=== PATIENT | female | born 1970 ===

== ENCOUNTER 2022-12-08 11:41 | Emergency (ER) | payer OTHER, SELFPAY ==
[2022-12-08 11:50] VITALS: BP 150/91; PULSE 70; RESP 20; TEMP 37; O2SAT 97; BMI 30.2
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
== END 2022-12-08 12:15 | disposition home or self-care (01) ==
PROVIDERS: Emergency Provider Emergency Medicine
DX: L03.116 Cellulitis of left lower limb (principal); M79.672 Pain in left foot
CPT/HCPCS: 99282; 99283

== ENCOUNTER 2022-12-13 12:18 | Emergency (ER) | payer OTHER, SELFPAY ==
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
[2022-12-13 12:25] VITALS: BP 164/92; PULSE 93; RESP 20; TEMP 36.6; O2SAT 98; BMI 33.0
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
--- NOTE | 2022-12-13 12:40 | PC.NURSE ---
report given to Francisco, commercial lines account assistantcolor television console monitor applied, pulse ox in place, SR on monitor
--- NOTE | 2022-12-13 12:52 | MHC.EDTECH ---
@[phone] called [facility] at the request of Dr. Reed. Gave patient demographics. The individual on the phone asked to speak with Dr. Reed regarding the diagnosis of the patient. Dr. Reed took the call right away.
[2022-12-13] MEDS: Albuterol Sulfate (0.083%) 2.5 MG/3 ML VIAL.NEB 5 MG INHALE (12:56)
[2022-12-13 12:57] VITALS: PULSE 87; RESP 14; O2SAT 97
[2022-12-13 12:58] LABS: MANUAL DIFF FLAG NO
[2022-12-13] MEDS: 0.9 % Sodium Chloride 1,000 ML 999 ML IV (13:01)
[2022-12-13 13:09] LABS: Basophils Absolute Auto 0.1 X10*3/uL (0.0-0.2); Basophils Percent Auto 0.7 % (0-2); Eosinophils Absolute Auto 0.4 X10*3/uL (0.0-0.4); Eosinophils Percent Auto 5.2 % (0-4); Hematocrit 40.1 % (37.0-47.0); Hemoglobin 13.4 g/dl (12.0-16.0); Imm Gran Abs Auto 0.03 X10*3/uL (0.00-0.03); Imm Gran Pct Auto 0.4 % (0.0-0.4); Lymphocytes Absolute Auto 1.7 X10*3/uL (1.2-4.9); Lymphocytes Percent Auto 25.1 % (20-40); Mean Corpuscular HGB Conc 33.4 g/dl (31.0-35.0); Mean Corpuscular Hemoglobin 28.9 pg (27.0-33.0); Mean Corpuscular Volume 86.4 fL (80.0-98.0); Mean Platelet Volume 10.4 fL (9.4-12.3); Monocytes Absolute Auto 0.5 X10*3/uL (0.1-1.2); Monocytes Percent Auto 7.8 % (2-11); Neutrophils Absolute Auto 4.1 x10*3/uL (2.0-8.3); Neutrophils Percent Auto 60.8 % (45-73); Platelet Count 277 X10*3/uL (160-400); Red Blood Count 4.64 X10*6/uL (4.20-5.50); Red Cell Distribution Width 13.1 % (11.0-16.0); White Blood Count 6.8 X10*3/uL (4.8-10.8)
--- NOTE | 2022-12-13 13:18 | PC.NURSE ---
aox4. MAGANA equally. reports facial/left foot pain. abrasion. denies numbness/tingling to areas. piv placed. xray being ordered- md osborn notified pt reports hurt left foot previously. vss pre pt. formwork carpenter came to bedside.
[2022-12-13 13:46] LABS: Anion Gap 14 (12-20); Blood Urea Nitrogen 22 mg/dL (9-16); Calcium 9.2 mg/dL (8.4-10.2); Carbon Dioxide 20 mmol/L (22-29); Chloride 112 mmol/L (96-108); Creatinine Clr Calc Pharmacy 102.3; Estimated Glomerular Filt Rate > 60; Glucose Random 109 mg/dL (60-115); Potassium 4.3 mmol/L (3.3-5.1); Sodium 142 mmol/L (135-145)
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
[2022-12-13 14:19] VITALS: BP 115/79; PULSE 84; RESP 12; TEMP 36.6; O2SAT 98
[2022-12-13 14:57] LABS: Appearance Urine Clear; Color Urine Yellow; Glucose Urine UA Negative (Negative); Leukocyte Esterase Urine Moderate (2+) (Negative); Nitrite Urine Negative (Negative); PH 5.5 (5.0-9.0); Specific Gravity - Urine 1.025 (1.005-1.025); UMIC TRIGGER UACC YES; Urine Blood Negative (Negative); Urine Ketones Negative (Negative); Urine Protein Negative (Neg-Trace)
[2022-12-13 14:58] LABS: UPreg QC Valid YES; Urine Pregnancy NEGATIVE (NEGATIVE)
[2022-12-13] MEDS: oxyCODONE HCl Immed Release 5 MG TABLET PO (15:01)
[2022-12-13 15:03] VITALS: BP 117/79; PULSE 86; RESP 16; TEMP 36.6; O2SAT 98
[2022-12-13 15:11] LABS: Bacteria Urine None Seen (None Seen); Hyaline Casts Urine 0-2 /LPF (0-2); RBC Urine 0-2 /HPF (0-2); UACC Culture Trigger YES
[2022-12-13] MEDS: Silver Sulfadiazine 1 % Cream 20 GM TUBE 1 APPL TOPICAL (16:22)
[2022-12-13] MEDS: Bacitracin Oint 0.9 GM PACKET 1 APPL TOPICAL (16:23)
[2022-12-13 16:32] VITALS: BP 131/69; PULSE 81; RESP 17; TEMP 36.3; O2SAT 98
[2022-12-13 16:34] VITALS: BP 131/69; PULSE 81; RESP 17; TEMP 36.3; O2SAT 98
--- NOTE | 2022-12-13 17:01 | PC.NURSE ---
aox4. latosha, client liaison, utilized. piv out. foot dressed. bacitrain to face applied. cleansed face/foot per md osborn. wheelchair to lobby. CSM remains intact throughout. understands instructions- verbalized/demonstrated. vss per pt baseline at this time.
== END 2022-12-13 17:00 | disposition home or self-care (01) ==
PROVIDERS: Emergency Provider Emergency Medicine; PCP Internal Medicine
DX: T25.322A Burn of third degree of left foot, initial encounter (principal); T20.29XA Burn of second degree of multiple sites of head, face, and neck, initial encounter; T31.0 Burns involving less than 10% of body surface; X12.XXXA Contact with other hot fluids, initial encounter; Y93.89 Activity, other specified; Y92.010 Kitchen of single-family (private) house as the place of occurrence of the external cause; Y99.9 Unspecified external cause status
CPT/HCPCS: 16025; 36415; 73600; 73630; 80048; 81001; 81003; 81025; 85025; 87086; 93005; 94640; 96360; 96361; 99284; 99285

== ENCOUNTER 2023-03-13 11:43 | Outpatient (REF) | payer OTHER, SELFPAY ==
[2023-03-13 15:59] LABS: Alanine Aminotransferase 26 U/L (0-31); Albumin Level 4.4 g/dL (3.5-5.0); Alkaline Phosphatase 157 U/L (39-117); Aspartate Amino Transferase 19 U/L (5-31); Bilirubin Direct 0.3 mg/dL (0.0-0.5); Bilirubin Total 0.8 mg/dL (0.0-1.0); Total Protein 6.9 g/dL (6.5-8.0)
[2023-03-13 16:32] LABS: Folate 9.8 ng/mL (> or = 4.0); Vitamin B12 816 pg/mL (200-900)
[2023-03-19 15:28] LABS: Vitamin D 25-OH, D2 <4 ng/mL; Vitamin D 25-OH, D3 9 ng/mL; Vitamin D 25-OH, Total 9 ng/mL (30-100)
== END 2023-03-13 11:44 | disposition home or self-care (01) ==
LOC: HO.LAB 11:43
PROVIDERS: PCP Internal Medicine; Visit Provider Nurse Practitioner Family
DX: Z01.818 Encounter for other preprocedural examination (principal); E78.00 Pure hypercholesterolemia, unspecified; R10.11 Right upper quadrant pain; R19.7 Diarrhea, unspecified; E55.9 Vitamin D deficiency, unspecified; K59.00 Constipation, unspecified; Z79.899 Other long term (current) drug therapy
CPT/HCPCS: 36415; 80076; 82306; 82607; 82746

== ENCOUNTER 2023-03-13 11:43 | Outpatient (AMB) | payer OTHER, SELFPAY ==
--- NOTE | 2023-03-13 11:53 | A.OFFVIS_ITS ---
Intake Vital Signs 03/13/23 11:55 Height 5 ft 4 in Weight 182 lb 15.739 oz BMI 31.4 Blood Pressure Location Lt brachial Position Sitting Intake Visit Reasons: Colonoscopy Screening Intake Note: Julia presents in the office as a colonoscopy screening. CC: She states that she is not having any concerns today. She is just due for a colonoscopy. [employer] Required: Yes Allergies No Known Allergies Allergy (Verified 03/13/23 11:55) Medication List - Last Reconciled 03/13/23 by TOMASA Mays-CALEB atorvastatin 10 mg PO BEDTIME bacitracin zinc 1 appl topical TID cephalexin 500 mg PO TID cetirizine (All Day Allergy (cetirizine)) 10 mg PO DAILY PRN ibuprofen 600 mg PO TID PRN mupirocin 2% 1 appl topical TID HPI Colonoscopy Screening HPI Details 52 year old? female with past medical hi story of hypercholesteremia is here today for pre colonoscopy screening.? Patient was sent to us by her PCP.? This is her first colonoscopy screening.? Patient denies any gastrointestinal symptoms in the past or at present.? Denies any personal or family history of gastrointestinal disease, colon polyps, or cancer.? Patient has a history of cholecystectomy. Reports that she has occasional right upper quadrant discomfort after eating fried or greasy food. Patient reports occasional constipation. Denies history of difficulty with sedation or anesthesia in the past, however patient had upper endoscopy about 6 years ago and had trouble waking up after. Unsure what type of anesthetic was used.? Negative for history of sleep apnea.? Denies any history of cardiac, renal, pulmonary, or hepatic disease.??Patient had cholecystectomy about 10 years ago. No history of infectious? diseases like hepatitis A, B, C, HIV or tuberculosis.? Patient is not on any anticoagulation therapy. [facility] Medical History No pertinent past medical history Surgical History (Updated 03/13/23 @ 11:55 by ABBIE Gallo) History of esophagogastroduodenoscopy (EGD) Social History Alcohol intake: never Review of Systems Const Denies weight gain and Denies weight loss ENT Reports no additional complaints, Denies dysphagia and Denies odynophagia Card Reports no additional complaints Resp Reports no additional complaints GI Reports abdominal pain (RUQ), Denies belching, Denies melena, Denies bloating, Denies change in bowel habits, Denies dysphagia, Denies excessive flatus, Denies dyspepsia, Denies heartburn, Denies diarrhea, Denies loose stools, Denies nausea, Denies odynophagia and Denies vomiting Reports no additional complaints Musc Reports no additional complaints Neuro Reports no additional complaints Psych Reports no additional complaints Endo Reports no additional complaints Physical Exam Vital Signs: BMI result Body Mass Index 31.4 Const General: healthy appearing, no acute distress and well developed Nutritional Appearance: obese Orientation/consciousness: patient oriented x3 HEENT Head: Yes normal to inspection, Yes normocephalic and Yes atraumatic Face and sinus: Yes normal facial exam Mouth: Normal oral and palatal mucosa present Throat: Yes posterior oropharynx normal, Yes tonsils normal and Yes uvula midline Eyes General: appearance normal, both eyes and all related structures Neck Neck: Yes normal visual inspection, Yes full ROM and Yes trachea midline Thyroid: Thyroid normal Resp Effort & Inspection: normal respiratory effort, able to speak in complete sentences, no tracheal deviation and symmetric chest movement Auscultation: clear to auscultation bilaterally Cardio Rate: regular rate Heart sounds: S1 normal heart sound present and S2 normal heart sound present GI Inspection: Yes normal to inspection, No distended and Yes obesity Palpation (GI): Soft to palpation, not firm, nontender and No hepatosplenomegaly present Auscultation: normal bowel sounds General: Yes no CVA tenderness Back/Spine/Pelvis Back: no CVA tenderness Skin General skin exam: elasticity normal, turgor normal and dry skin Neuro General: patient oriented x3 Psych Appearance: grossly normal Mental Status: mental status grossly normal Speech and movement: Normal speech and movement present Assessment & Plan Assessment & Plan (1) Postprandial abdominal pain in right upper quadrant: Code(s): R10.11 - Right upper quadrant pain Plan: Occasional postprandial right upper quadrant discomfort. Patient has history of cholecystectomy. Will have patient move her bowels better. Patient will try to take 2 senna every evening. She was encouraged to increase fluid intake and activities to promote better bowel motility. (2) Screen for colon cancer: Code(s): Z12.11 - Encounter for screening for malignant neoplasm of colon Plan: Patient denies any cardiac or respiratory symptoms.? RUQ pain postprandially. Denies any issues with anesthesia in the past except for 1 time after upper endoscopy patient had trouble waking up. Denies any history of sleep apnea.? No history infectious diseases in the past or present.? Not on any anticoagulation therapy.? No family or personal history of colon cancer or polyps.? Patient denies melena, hematochezia, unintentional weight loss or ribbon like stools.? Discussed at length the pre-procedure,? prep, diet & medications as well as what to expect prior, during and after the procedure.?? Stressed the importance of good bowel prep. ?Recommended the use of Vaseline or Calmoseptine OTC & baby wipes with bowel movements to promote comfort.? ?? I will see her in 6 weeks, sooner as needed basis. Patient is agreeable to this plan and verbalizes understanding of instructions. She was given the opportunity to ask questions and all questions answered. Thank you for allowing me to participate in her care Orders: Orders Liver Panel Today R10.9 - Unspecified abdominal pain Vitamin B12 and Folate Today R19.7 - Diarrhea, unspecified Vitamin D 25-OH (D2 and D3) Today E55.9 - Vitamin D deficiency, unspecified Medications: New bisacodyl (Dulcolax (bisacodyl)) take 2 tabs at noon the day before your colonoscopy 10 mg (2 x 5 mg) PO ONCE 1 day 2 tabs 0RF Z12.11 - Encounter for screening for malignant neoplasm of colon sennosides (Natural Senna Laxative) 17.2 mg (2 x 8.6 mg) PO BEDTIME 60 tabs 3RF constipation K59.00 - Constipation, unspecified polyethylene glycol 3350 (Miralax) As directed by gastroenterology department at [facility] 238 grams PO ONCE 238 grams 0RF Z12.11 - Encounter for screening for malignant neoplasm of colon Coding Level of Care Code New Pt Level 3 (52484) Diagnoses Postprandial abdominal pain in right upper quadrant R10.11 Screen for colon cancer Z12.11 Time Spent (min) 40 Comment 30 minutes spent with patient and additional 10 minutes spent reviewing her records
[2023-03-13 11:55] VITALS: BMI 31.4
== END 2023-03-13 12:33 | disposition home or self-care (01) ==
PROVIDERS: PCP Internal Medicine; Visit Provider Nurse Practitioner Family
DX: R10.11 Right upper quadrant pain (principal); Z12.11 Encounter for screening for malignant neoplasm of colon
CPT/HCPCS: 99203

== ENCOUNTER 2023-04-24 11:36 | Outpatient (AMB) | payer OTHER, SELFPAY ==
[2023-04-24 11:37] VITALS: BP 142/73; PULSE 81; O2SAT 97; BMI 32.2
--- NOTE | 2023-04-24 11:37 | A.OFFVIS_ITS ---
Intake Vital Signs 04/24/23 11:37 Height 5 ft 4 in Weight 187 lb 13.341 oz BMI 32.2 BP 142/73 H Blood Pressure Location Lt brachial Position Sitting Pulse 81 Pulse Source Pulse Oximeter Pulse Oximetry (%) 97 Oxygen Delivery Method Room Air Intake Visit Reasons: 6 week follow up Intake Note: Pt presents to the office today for a 6 week follow up. Pt states she is feeling much better. Pt denies any N/V/D. Allergies No Known Allergies Allergy (Verified 04/24/23 11:40) HPI 6 week follow up HPI Details LAST VISIT: Postprandial abdominal pain in right upper quadrant Occasional postprandial right upper quadrant discomfort. Patient has history of cholecystectomy. Will have patient move her bowels better. Patient will try to take 2 senna every evening. She was encouraged to increase fluid intake and activities to promote better bowel motility. Screen for colon cancer Patient denies any cardiac or respiratory symptoms.? RUQ pain postprandially. Denies any issues with anesthesia in the past except for 1 time after upper endoscopy patient had trouble waking up. Denies any history of sleep apnea.? No history infectious diseases in the past or present.? Not on any anticoagulation therapy.? No family or personal history of colon cancer or polyps.? Patient denies melena, hematochezia, unintentional weight loss or ribbon like stools.? Discussed at length the pre-procedure,? prep, diet & medications as well as what to expect prior, during and after the procedure.?? Stressed the importance of good bowel prep. ?Recommended the use of Vaseline or Calmoseptine OTC & baby wipes with bowel movements to promote comfort.? ?? I will see her in 6 weeks, sooner as needed basis. Patient is agreeable to this plan and verbalizes understanding of instructions. She was given the opportunity to ask questions and all questions answered. ? Thank you for allowing me to participate in her care Plan Orders Orders Liver Panel Today R10.9 Vitamin B12 and Folate Today R19.7 Vitamin D 25-OH (D2 and D3) Today E55.9 Medications New bisacodyl (Dulcolax (bisacodyl)) take 2 tabs at noon the day before your colonoscopy 10 mg (2 x 5 mg) PO ONCE 1 day 2 tabs 0R F Z12.11 sennosides (Natural Senna Laxative) 17.2 mg (2 x 8.6 mg) PO BEDTIME 60 tabs 3RF constipation K59.00 polyethylene glycol 3350 (Miralax) As directed by gastroenterology department at [facility] 238 grams PO ONCE 238 grams 0RF Z12.11 TODAY'S VISIT Patient is here today for follow-up. Patient reports that she continues to be constipated and is not taking Senokot every day. Patient is taking only every couple days. Patient does not empty her bowels completely. Patient denies melena, hematochezia, unintentional weight loss or ribbon like stools. Patient has not bulk her colonoscopy yet. Patient denies any dyspepsia, dysphagia or odynophagia. As mentioned last visit patient had no issues with anesthesia except for having trouble waking up after endoscopy. No changes since last visit. Denies any cardiac or respiratory symptoms. [facility] Medical History No pertinent past medical history Surgical History History of esophagogastroduodenoscopy (EGD) Social History (Updated 04/24/23 @ 11:41 by Soo Maurer MA) Household Members: Spouse Housing: House Alcohol intake: never Patient Tobacco Use Status: Never used Tobacco Use of substances other than those prescribed or required for medical reasons: No Review of Systems Const Denies weight gain and Denies weight loss ENT Reports no additional complaints, Denies dysphagia and Denies odynophagia Card Reports no additional complaints Resp Reports no additional complaints GI Denies abdominal pain, Denies belching, Denies melena, Denies bloating, Denies change in bowel habits, Reports constipation, Denies dysphagia, Denies excessive flatus, Denies dyspepsia, Denies heartburn, Denies diarrhea, Denies loose stools, Denies nausea, Denies odynophagia and Denies vomiting Reports no additional complaints Musc Reports no additional complaints Neuro Reports no additional complaints Psych Reports no additional complaints Endo Reports no additional complaints Physical Exam Vital Signs: Last Vital Signs Pulse 81 04/24/23 11:37 BP 142/73 H 04/24/23 11:37 Pulse Ox 97 04/24/23 11:37 Oxygen Delivery Method Room Air 04/24/23 11:37 BMI result Body Mass Index 32.2 Const General: healthy appearing, no acute distress and well developed Nutritional Appearance: obese Orientation/consciousness: patient oriented x3 HEENT Head: Yes normal to inspection, Yes normocephalic and Yes atraumatic Face and sinus: Yes normal facial exam Mouth: Normal oral and palatal mucosa present Throat: Yes posterior oropharynx normal, Yes tonsils normal and Yes uvula midline Eyes General: appearance normal, both eyes and all related structures Neck Neck: Yes normal visual inspection, Yes full ROM and Yes trachea midline Thyroid: Thyroid normal Resp Effort & Inspection: normal respiratory effort, able to speak in complete sentences, no tracheal deviation and symmetric chest movement Auscultation: clear to auscultation bilaterally Cardio Rate: regular rate Heart sounds: S1 normal heart sound present and S2 normal heart sound present GI Inspection: Yes normal to inspection, No distended and Yes obesity Palpation (GI): Soft to palpation, not firm, nontender and No hepatosplenomegaly present Auscultation: normal bowel sounds General: Yes no CVA tenderness Back/Spine/Pelvis Back: no CVA tenderness Skin General skin exam: elasticity normal, turgor normal and dry skin Neuro General: patient oriented x3 Psych Appearance: grossly normal Mental Status: mental status grossly normal Assessment & Plan Assessment & Plan (1) Screen for colon cancer: Code(s): Z12.11 - Encounter for screening for malignant neoplasm of colon (2) Constipation: Code(s): K59.00 - Constipation, unspecified Qualifiers: Constipation type: chronic idiopathic constipation Qualified Code(s): K59.04 - Chronic idiopathic constipation Plan Patient was encouraged to take Senokot daily. Patient was encouraged to increase fluid intake and activity to promote better bowel motility. Patient will be booked for colonoscopy. Again went over colonoscopy prep and clear liquid diet day before the procedure. What to expect before during and after the procedure discussed with patient. I will see patient after the procedure, sooner on as needed basis. Present is agreeable to this plan and verbalizes understanding of instructions. She was given the opportunity to ask questions and all questions answered. Thank you for allowing me to participate in her care Coding Level of Care Code Est Pt Level 3 (84749) Diagnoses Screen for colon cancer Z12.11 Chronic idiopathic constipation K59.04 Constipation type: chronic idiopathic constipation Time Spent (min) 30 Comment 20 minutes spent with patient and additional 10 minutes spent reviewing her records
== END 2023-04-24 13:18 | disposition home or self-care (01) ==
PROVIDERS: PCP Internal Medicine; Visit Provider Nurse Practitioner Family
DX: Z12.11 Encounter for screening for malignant neoplasm of colon (principal); K59.04 Chronic idiopathic constipation; Z01.818 Encounter for other preprocedural examination
CPT/HCPCS: 99213

== ENCOUNTER → 2023-04-24 11:36 | Outpatient (BNVA) | payer OTHER, SELFPAY | PROVIDERS: PCP Internal Medicine; Visit Provider Nurse Practitioner Family | DX: Z12.11 Encounter for screening for malignant neoplasm of colon (principal); K59.04 Chronic idiopathic constipation | CPT/HCPCS: 99212 ==

== ENCOUNTER 2023-12-28 08:20 | Day surgery (SDC) | payer OTHER, SELFPAY ==
[2023-08-08 09:38] VITALS: BMI 32.1
[2023-12-28 09:08] VITALS: BP 189/91; PULSE 71; RESP 18; TEMP 36.1; O2SAT 98
[2023-12-28 09:15] VITALS: BMI 30.6
[2023-12-28] MEDS: Lactated Ringers 1,000 ML 50 ML IVCONT (09:27)
--- NOTE | 2023-12-28 10:02 | MHC.SHP ---
Pre-Procedural Eval Section A - 24 Hr Update-Section A only Date of Service: 12/28/23 Section B - Complete if H&P > 30 days Chief Complaint: Encounter for screening for malignant neoplasm of Relevant Family History (Specify if Yes): No Relevant Social History: None Present Medications: see Short Stay Collaborative assessment Medical History: No relevant PMH History of Previous Operations: Relevant previous surgery/procedure and date(s) (History of esophagogastroduodenoscopy (EGD)) Allergies: Allergies Allergy/AdvReac Type Severity Reaction Status Date / Time No Known Allergies Allergy Verified 04/24/23 11:40 Review of Systems Sugical H&P ROS: Negative: Constitution, Cardiovascular, Respiratory and Gastrointestinal Exam Surgical H&P Exam: Normal: Heart, Normal: Lungs, Normal: Extremities and Normal: Abdomen Plan Diagnosis/Plan: Unchanged I have reviewed the history and physical and performed a pertinent physical examination on my patient. No changes have occurred unless specified. Time Spent With Patient Time: Total time managing care of this patient today ____ minutes.
--- NOTE | 2023-12-28 10:18 | HO.ANESPROP2 ---
[facility] Past Medical History Medical History No pertinent past medical history Family History Family history of problems with anesthesia: No Surgical History Surgical History History of esophagogastroduodenoscopy (EGD) History of Problems with Anesthesia: No Social History Social History (Updated 04/24/23 @ 11:41 by Soo Maurer CMA) Household Members: Spouse Housing: House Alcohol intake: never Patient Tobacco Use Status: Never used Tobacco Use of substances other than those prescribed or required for medical reasons: No Are you DNR?: No Advance Directives: No Advance Directives Information Provided: Yes Meds Allergies Allergy/AdvReac Type Severity Reaction Status Date / Time No Known Allergies Allergy Verified 04/24/23 11:40 Active Medications: Current Medications Lactated Ringer's (Lr) 1,000 mls @ 50 mls/hr IVCONT .Q20H SHAUNA Last Admin: 12/28/23 09:27 Dose: 50 mls/hr Home Medications ?Medication ?Instructions ?Recorded ?Confirmed ?Last Taken ?Type atorvastatin 10 mg tablet 10 mg PO BEDTIME 03/13/23 12/28/23 Unknown History cetirizine 10 mg tablet (All Day 10 mg PO DAILY PRN allergies 03/13/23 12/28/23 Unknown History Allergy (cetirizine)) Exam Height,Weight and Vital Signs: Height 5 ft 4 in Weight 80.739 kg Last Vital Signs Temp 96.9 F 12/28/23 09:08 Pulse 71 12/28/23 09:08 Resp 18 12/28/23 09:08 BP 189/91 H 12/28/23 09:08 Pulse Ox 98 12/28/23 09:08 O2 Del Method Room Air 12/28/23 09:08 Airway Mallampati Class: II TM Dist: >3cm Neck ROM: Full Heart: rrr Lungs: cta Assessment and Plan Assessment Anesthesia Assessment: Anesthesia Plan Discussed and Chart Reviewed Final Anesthetic Review Family History of Problems with Anesthesia: No History of Problems with Anesthesia: No NPO: Yes ASA Class: II Final Preanesthetic Review: No Changes in Pt Med Stat, Meds/Allgs Chart Reviewed and Consent Obtained/Reviewed Patient Risk: Low Procedure Risk: Low Anesthetic Plan Anesthetic Plan: MAC: Disposition: Standard PACU
[2023-12-28 11:41] VITALS: BP 122/74; PULSE 74; RESP 16; TEMP 36.1; O2SAT 96
--- NOTE | 2023-12-28 11:41 | HO.OPN-COLON ---
Colonoscopy Operative Note Operative Note Date of Service: 12/28/23 Narrative: COLONOSCOPY TILL CECUM WITH SNARE POLYPECTOMY Pre-op diagnosis: Colon cancer screening (first colonoscopy). Post-op diagnosis:? Colon polyp, hemorrhoids Endoscopist:? Nicole Mccray MD Anesthesia:?MAC Consent: Indications for the procedure and potential complications of bleeding, perforation, reaction to medications and missed diagnosis were discussed with the patient and informed consent was obtained. Instrument: Olympus PCF H 190 L variable stiffness pediatric colonoscope Monitoring: Vital signs and clinical assessment, intermittent blood pressure monitoring, continuous EKG monitoring, Pulse oximetry and Carbon Dioxide monitoring were done throughout the procedure. Pt had bradycardia during intubation which resolved without medications Please see anesthesia flowsheet. Colon withdrawl time was 20 minutes. Procedure: The patient was placed in the left lateral decubitis position and pre-procedure medications were administered. After a digital rectal examination of the ano-rectum, the video colonoscope was inserted into the rectum and advanced through the colon to the cecum. The colonoscope was slowly withdrawn in a retrograde panoramic fashion and the colon mucosa was carefully examined including a retroflexed view of the rectum. Findings and interventions are described below. Procedure Difficulty: without difficulty Findings: Terminal Ileum: Not evaluated Cecum: Normal Ascending Colon: Normal Transverse Colon: Normal Descending Colon: Normal Sigmoid Colon: A 5-6 mm sessile polyp at 20 cms - removed with a cold snare Rectum: Normal Ano-rectum: Moderate internal hemorrhoids Colon preparation: Good after some irrigation. [place] Bowel Preparation Scale Right colon; 2 Transverse colon: 2 Left colon; 2 (0 = Unprepared colon segment with mucosa not seen due to solid stool that cannot be cleared. 1 = Portion of mucosa of the colon segment seen, but other areas of the colon segment not well seen due to staining, residual stool and/or opaque liquid. 2 = Minor amount of residual staining, small fragments of stool and/or opaque liquid, but mucosa of colon segment seen well. 3 = Entire mucosa of colon segment seen well with no residual staining, small fragments of stool or opaque liquid) Impression and Post Procedure Diagnosis: Colonoscopy Findings: One small polyp was removed Moderate hemorrhoids on retroflexed exam. Plan: Pt has a FU appointment on 01/08/24 with Dipika Tomlinson NP Repeat Colonoscopy in 5 years if polyps are adenomatous and 10 year if polyps are hyperplastic. Above findings were reviewed with the patient and relevant handouts were given and the discharge area.
[2023-12-28 11:56] VITALS: BP 133/85; PULSE 75; RESP 18; TEMP 36.1; O2SAT 98
== END 2023-12-28 12:14 | disposition home or self-care (01) ==
PROVIDERS: PCP Internal Medicine; Visit Provider Internal Medicine Gastroenterology
PROC: 0DJD8ZZ Inspection of Lower Intestinal Tract, Via Natural or Artificial Opening Endoscopic (ICD-10-PCS; CPT 45378; principal; 2023-12-28 10:20)
DX: Z12.11 Encounter for screening for malignant neoplasm of colon (principal); K63.5 Polyp of colon; K64.8 Other hemorrhoids; K59.04 Chronic idiopathic constipation; E55.9 Vitamin D deficiency, unspecified; Z79.899 Other long term (current) drug therapy
CPT/HCPCS: 45385; 88305; J2704

== ENCOUNTER → 2023-12-28 08:20 | Outpatient (BNV) | payer OTHER, SELFPAY | PROVIDERS: PCP Internal Medicine; Visit Provider Internal Medicine Gastroenterology | DX: Z12.11 Encounter for screening for malignant neoplasm of colon (principal); K63.5 Polyp of colon; K64.8 Other hemorrhoids | CPT/HCPCS: 45385 ==

== ENCOUNTER 2024-01-08 14:21 | Outpatient (AMB) | payer OTHER, SELFPAY ==
--- NOTE | 2024-01-08 14:22 | MHC.OFFVIS ---
Vital Signs 01/08/24 14:28 Height 5 ft 4 in Weight 181 lb 3.52 oz BMI 31.1 BP 128/82 Blood Pressure Location Rt brachial Position Sitting Pulse 88 Pulse Source Pulse Oximeter Pulse Oximetry (%) 97 Oxygen Delivery Method Room Air Intake Visit Reasons: S/P Sod; Dr. Nichole Intake Note: Julia presents in office today for a scheduled post colo FUV CC; Pt denies any complications or new concerns post op. Pt reports that they are here today to discuss the results of their s/p. After School Counselor Required: Yes After School Counselor Services: After School Counselor Offered & Declined Accompanied by: Family/Other Allergies No Known Allergies Allergy (Verified 01/08/24 14:24) HPI HPI S/P Sod; Dr. Nichole: Details: LAST VISIT Screen for colon cancer Constipation Plan Patient was encouraged to take Senokot daily. Patient was encouraged to increase fluid intake and activity to promote better bowel motility. Patient will be booked for colonoscopy. Again went over colonoscopy prep and clear liquid diet day before the procedure. What to expect before during and after the procedure discussed with patient. I will see patient after the procedure, sooner on as needed basis. Present is agreeable to this plan and verbalizes understanding of instructions. She was given the opportunity to ask questions and all questions answered. COLONOSCOPY Findings: Terminal Ileum: Not evaluated Cecum: Normal Ascending Colon: Normal Transverse Colon: Normal Descending Colon: Normal Sigmoid Colon: A 5-6 mm sessile polyp at 20 cms - removed with a cold snare Rectum: Normal Ano-rectum: Moderate internal hemorrhoids Colon preparation: Good after some irrigation. [place] Bowel Preparation Scale Right colon; 2 Transverse colon: 2 Left colon; 2 (0 = Unprepared colon segment with mucosa not seen due to solid stool that cannot be cleared. 1 = Portion of mucosa of the colon segment seen, but other areas of the colon segment not well seen due to staining, residual stool and/or opaque liquid. 2 = Minor amount of residual staining, small fragments of stool and/or opaque liquid, but mucosa of colon segment seen well. 3 = Entire mucosa of colon segment seen well with no residual staining, small fragments of stool or opaque liquid) Impression and Post Procedure Diagnosis: Colonoscopy Findings: One small polyp was removed Moderate hemorrhoids on retroflexed exam. Plan: Repeat Colonoscopy in 5 years if polyps are adenomatous and 10 year if polyps are hyperplastic. PATHOLOGY RESULTS Diagnosis Colon, sigmoid, polyp: Consistent with hyperplastic polyp TODAY'S VISIT; Patient is here today for follow-up and to discuss colonoscopy results. Patient denies any ill effects from the prep, anesthesia or procedure itself. One hyperplastic polyp found in the sigmoid colon. Colonoscopy will be repeated in 10 years, sooner if clinically necessary. Patient reports that she continues to have trouble moving her bowels. She also reports occasional epigastric discomfort and postprandial reflux. Denies dysphagia, dyspepsia or odynophagia. Patient denies any nausea or vomiting. Denies melena, hematochezia. No family history of CRC. [facility] Medical History No pertinent past medical history Surgical History Hx of colonoscopy History of esophagogastroduodenoscopy (EGD) Social History Household Members: Spouse Housing: House Alcohol intake: never Patient Tobacco Use Status: Never used Tobacco Review of Systems Const Denies weight gain and Denies weight loss ENT Reports no additional complaints, Denies dysphagia and Denies odynophagia Card Reports no additional complaints Resp Reports no additional complaints GI Denies abdominal pain, Denies belching, Denies melena, Denies bloating, Denies change in bowel habits, Reports constipation, Denies dysphagia, Denies excessive flatus, Denies dyspepsia, Reports heartburn (Occasional), Denies diarrhea, Denies loose stools, Denies nausea, Denies odynophagia and Denies vomiting Reports no additional complaints Musc Reports no additional complaints Neuro Reports no additional complaints Psych Reports no additional complaints Endo Reports no additional complaints Physical Exam Vital Signs: Last Vital Signs Pulse 88 01/08/24 14:28 BP 128/82 01/08/24 14:28 Pulse Ox 97 01/08/24 14:28 Oxygen Delivery Method Room Air 01/08/24 14:28 BMI result Body Mass Index 31.1 Const General: healthy appearing and no acute distress Nutritional Appearance: obese Orientation/consciousness: patient oriented x3 Resp Effort & Inspection: normal respiratory effort, able to speak in complete sentences, no tracheal deviation and symmetric chest movement Auscultation: clear to auscultation bilaterally Cardio Rate: regular rate GI Inspection: Yes normal to inspection, No distended and Yes obesity Palpation (GI): Soft to palpation, not firm, nontender and No hepatosplenomegaly present Auscultation: normal bowel sounds General: Yes no CVA tenderness Back/Spine/Pelvis Back: no CVA tenderness Skin General skin exam: elasticity normal, turgor normal and dry skin Neuro General: patient oriented x3 Psych Appearance: grossly normal Mental Status: mental status grossly normal Assessment & Plan Assessment & Plan (1) Constipation: Code(s): K59.00 - Constipation, unspecified Qualifiers: Constipation type: slow transit constipation Qualified Code(s): K59.01 - Slow transit constipation (2) GERD (gastroesophageal reflux disease): Code(s): K21.9 - Gastro-esophageal reflux disease without esophagitis (3) Postprandial epigastric pain: Code(s): R10.13 - Epigastric pain Plan Patient will start taking omeprazole daily. Avoid dietary triggers and late night snacking. Staying upright for minimum 3 hours after meals discussed with patient. Patient will continue taking Senokot. Increase fluid intake and activity to promote better bowel motility. Patient will return to the office in 3 months, sooner on as needed basis. She is agreeable to this plan and verbalizes understanding of instructions. She was given the opportunity to ask questions and all questions answered. Thank you for allowing me to participate in her care Medications: New omeprazole 20 mg PO DAILY 90 caps 2RF K21.9 - Gastro-esophageal reflux disease without esophagitis sennosides (Natural Senna Laxative) 17.2 mg (2 x 8.6 mg) PO BEDTIME 180 tabs 3RF constipation K59.00 - Constipation, unspecified Coding Level of Care Code Est Pt Level 3 (27613) Diagnoses Slow transit constipation K59.01 Constipation type: slow transit constipation GERD (gastroesophageal reflux disease) K21.9 Postprandial epigastric pain R10.13 Time Spent (min) 30 Comment 20 minutes spent with patient and additional 10 minutes spent reviewing her records
[2024-01-08 14:28] VITALS: BP 128/82; PULSE 88; O2SAT 97; BMI 31.1
== END 2024-01-08 15:00 | disposition home or self-care (01) ==
PROVIDERS: PCP Internal Medicine; Visit Provider Nurse Practitioner Family
DX: K59.01 Slow transit constipation (principal); K21.9 Gastro-esophageal reflux disease without esophagitis; R10.13 Epigastric pain
CPT/HCPCS: 99213

== ENCOUNTER → 2024-01-08 14:21 | Outpatient (BNVA) | payer OTHER, SELFPAY | PROVIDERS: PCP Internal Medicine; Visit Provider Nurse Practitioner Family | DX: K59.01 Slow transit constipation (principal); K21.9 Gastro-esophageal reflux disease without esophagitis; R10.13 Epigastric pain | CPT/HCPCS: 99212 ==

== ENCOUNTER 2024-04-15 14:02 | Outpatient (AMB) | payer OTHER, SELFPAY ==
--- NOTE | 2024-04-15 14:20 | A.OFFVIS_ITS ---
Vital Signs 04/15/24 14:21 Height 5 ft 4 in Weight 177 lb 11.081 oz BMI 30.5 BP 122/66 Blood Pressure Location Lt brachial Position Sitting Pulse 92 Pulse Source Pulse Oximeter Pulse Oximetry (%) 97 Oxygen Delivery Method Room Air Intake Visit Reasons: 3 month follow up Constipation Intake Note: Relevant Flags or Indicators ? Requires Electrician Supervisor Substation? Charisma Dumont presents in office today for a scheduled 3 mos FUV. CC; Since last visit; labs ordered ? none. Rx ordered ? yes; senna and omeprazole. Diagnostics/images ordered ? none. Relevant GI Sx as reported per pt? Reflux ? Dysphagia / Painful Swallowing ? Fecal abnormalities o?? Constipation o?? Diarrhea ? Abdominal Pain o?? Upper B/L Early satiety. ? Hx of any recent surgeries? None Electrician Supervisor Substation Required: Yes Electrician Supervisor Substation Services: Electrician Supervisor Substation Offered & Declined Information Interpreted: non-clinical & clinical Accompanied by: Spouse Allergies No Known Allergies Allergy (Verified 04/15/24 14:28) HPI HPI 3 month follow up Constipation: Details: LAST VISIT: Constipation GERD (gastroesophageal reflux disease) Postprandial epigastric pain Plan Patient will start taking omeprazole daily. Avoid dietary triggers and late night snacking. Staying upright for minimum 3 hours after meals discussed with patient. Patient will continue taking Senokot. Increase fluid intake and activity to promote better bowel motility. Patient will return to the office in 3 months, sooner on as needed basis. She is agreeable to this plan and verbalizes understanding of instructions. She was given the opportunity to ask questions and all questions answered. ? Thank you for allowing me to participate in her care Medications New omeprazole 20 mg PO DAILY 90 caps 2RF K21.9 sennosides (Natural Senna Laxative) 17.2 mg (2 x 8.6 mg) PO BEDTIME 180 tabs 3RF constipation K59.00 TODAY'S VISIT Patient is here today for follow-up. Patient is accompanied by her . Patient reports that she is feeling much better now. Patient admits to forgetting taking her omeprazole in the morning. Symptoms of acid reflux occasional depending on what she eats and if she does not take the medication. Patient reports that she is not taking Senokot every day. States that she was having cramps when she took it. Patient states that she takes it only when she is constipated. Patient reports that she is drinking water about 2 x 8 oz bottles a day. Patient is aware that she should be drinking more fluids. Patient reports occasional postprandial abdominal bloating. Denies melena, hematochezia, unintentional weight loss or ribbon like stools. Patient denies dyspepsia, dysphagia or odynophagia. [facility] Medical History No pertinent past medical history Surgical History Hx of colonoscopy History of esophagogastroduodenoscopy (EGD) Social History Household Members: Spouse Housing: House Alcohol intake: never Patient Tobacco Use Status: Never used Tobacco Review of Systems Const Denies weight gain and Denies weight loss ENT Reports no additional complaints, Denies dysphagia and Denies odynophagia Card Reports no additional complaints Resp Reports no additional complaints GI Denies abdominal pain, Denies belching, Denies melena, Denies bloating, Denies change in bowel habits, Reports constipation, Denies dysphagia, Denies excessive flatus, Denies dyspepsia, Reports heartburn, Denies diarrhea, Denies loose stools, Denies nausea, Denies odynophagia and Denies vomiting Reports no additional complaints Musc Reports no additional complaints Neuro Reports no additional complaints Psych Reports no additional complaints Endo Reports no additional complaints Physical Exam Vital Signs: Last Vital Signs Pulse 92 04/15/24 14:21 BP 122/66 04/15/24 14:21 Pulse Ox 97 04/15/24 14:21 Oxygen Delivery Method Room Air 04/15/24 14:21 BMI result Body Mass Index 30.5 Const General: healthy appearing and no acute distress Nutritional Appearance: obese Orientation/consciousness: patient oriented x3 Resp Effort & Inspection: normal respiratory effort, able to speak in complete sentences, no tracheal deviation and symmetric chest movement Auscultation: clear to auscultation bilaterally Cardio Rate: regular rate GI Inspection: Yes normal to inspection, No distended and Yes obesity Palpation (GI): Soft to palpation, not firm, nontender and No hepatosplenomegaly present Auscultation: normal bowel sounds General: Yes no CVA tenderness Back/Spine/Pelvis Back: no CVA tenderness Skin General skin exam: elasticity normal, turgor normal and dry skin Neuro General: patient oriented x3 Psych Appearance: grossly normal Mental Status: mental status grossly normal Assessment & Plan Assessment & Plan (1) Constipation: Code(s): K59.00 - Constipation, unspecified Qualifiers: Constipation type: slow transit constipation Qualified Code(s): K59.01 - Slow transit constipation (2) GERD (gastroesophageal reflux disease): Code(s): K21.9 - Gastro-esophageal reflux disease without esophagitis Qualifiers: Esophagitis presence: esophagitis presence not specified Qualified Co de(s): K21.9 - Gastro-esophageal reflux disease without esophagitis (3) Postprandial epigastric pain: Code(s): R10.13 - Epigastric pain Plan Patient will continue taking senna every day. Increase fluid intake and activity to promote better bowel motility. Patient will eat more vegetables and change her diet. To reduce the bloating discussed with patient the importance of emptying her bowels better and eating food that does not cause those symptoms. Of voiding lactose and carbs as much as possible. Take omeprazole daily. Avoid dietary triggers and late night snacking. Staying upright for minimum 3 hours after meals discussed with patient. Patient wants to lose weight will try with diet and will try berberine. Follow-up in the office in 6 months, sooner on as needed basis. She is agreeable to this plan and verbalizes understanding of instructions. She was given the opportunity to ask questions and all questions answered. Thank you for allowing me to participate in her care Medications: Refilled sennosides (Natural Senna Laxative) 17.2 mg (2 x 8.6 mg) PO BEDTIME 180 tabs 3RF constipation K59.00 - Constipation, unspecified omeprazole 20 mg PO DAILY 90 caps 2RF K21.9 - Gastro-esophageal reflux disease without esophagitis Coding Level of Care Code Est Pt Level 3 (32289) Diagnoses Slow transit constipation K59.01 Constipation type: slow transit constipation Gastroesophageal reflux disease, unspecified whether esophagitis present K21.9 Esophagitis presence: esophagitis presence not specified Postprandial epigastric pain R10.13 Time Spent (min) 30 Comment 20 minutes spent with patient and additional 10 minutes spent reviewing her records
[2024-04-15 14:21] VITALS: BP 122/66; PULSE 92; O2SAT 97; BMI 30.5
== END 2024-04-15 14:49 | disposition home or self-care (01) ==
PROVIDERS: PCP Internal Medicine; Visit Provider Nurse Practitioner Family
DX: K59.01 Slow transit constipation (principal); K21.9 Gastro-esophageal reflux disease without esophagitis; R10.13 Epigastric pain
CPT/HCPCS: 99213

== ENCOUNTER → 2024-04-15 14:02 | Outpatient (BNVA) | payer OTHER, SELFPAY | PROVIDERS: PCP Internal Medicine; Visit Provider Nurse Practitioner Family | DX: K59.01 Slow transit constipation (principal); K21.9 Gastro-esophageal reflux disease without esophagitis; R10.13 Epigastric pain | CPT/HCPCS: 99212 ==